=== PATIENT | female | born 2000 ===

== ENCOUNTER 2025-01-19 13:09 | Emergency (ER) | payer MEDICAID ==
[~2025-01-19] VITALS: Ht 157.5 cm; Wt 73.0 kg
[2025-01-19 13:17] VITALS: O2SAT 97
[2025-01-19] MEDS: KETOROLAC 15MG/ML VIAL IM ONE (14:07)
[2025-01-19] MEDS: LIDOCAINE 5% PATCH TOP SCH (14:07)
[2025-01-19 14:12] LABS: CLARITY URINE CLOUDY (CLEAR); COLOR URINE YELLOW (YELLOW); GLUCOSE URINE NEGATIVE (NEGATIVE); KETONES URINE NEGATIVE (NEGATIVE); LEUKOCYTE ESTERASE URINE TRACE (NEGATIVE); NITRITE URINE NEGATIVE (NEGATIVE); OCCULT BLOOD URINE NEGATIVE (NEGATIVE); PH URINE 7.0 (4.5-8.0); PROTEIN URINE NEGATIVE (NEGATIVE); SPECIFIC GRAVITY URINE 1.026 (1.005-1.030); UROBILINOGEN URINE 1.0 E.U./dL (0.2-1.0)
[2025-01-19 14:34] LABS: BACTERIA URINE 3+; SQUAMOUS EPITHELIAL CELL URINE 3+ /lpf (RARE/1+)
[2025-01-19 14:35] LABS: RBC URINE NONE SEEN /hpf (0-2); WBC URINE 0-2 /hpf (0-2)
[2025-01-19] MEDS: ACETAMINOPHEN 500MG TABLET PO ONE (15:04)
[2025-01-19] MEDS ORDERED: TOPUD MT (15:56)
[2025-01-19] MEDS ORDERED: LIDO-53 TP (15:56)
[2025-01-19] MEDS ORDERED: NITR100C MT (15:56)
[2025-01-19 16:22] VITALS: BP 121/67; PULSE 52; RESP 16; TEMP 36.6; O2SAT 100
== END 2025-01-19 16:26 | disposition home or self-care (01) ==
LOC: ER 13:09
DX: S39.012A Strain of muscle, fascia and tendon of lower back, initial encounter (principal); N39.0 Urinary tract infection, site not specified; Z79.899 Other long term (current) drug therapy; X58.XXXA Exposure to other specified factors, initial encounter; Y93.89 Activity, other specified; Y92.89 Other specified places as the place of occurrence of the external cause; Y99.8 Other external cause status
CPT/HCPCS: 81003; 81025; 74176; 96372; 99285; J1885; Z7610